=== PATIENT | male | born 1960 | race Two or more races ===

== ENCOUNTER 2020-02-23 13:32 | Outpatient (CLI) | payer MEDICAID ==
--- NOTE | 2020-02-23 18:15 | Consultation ---
DATE OF CONSULTATION: 02/23/2020 CONSULTING PHYSICIAN: Blaze Vyas MD CHIEF COMPLAINT: Chronic GERD. PAST MEDICAL HISTORY: 1. Colitis. 2. GERD. 3. Hypertension. 4. Hypercholesterolemia. PAST SURGICAL HISTORY: None. MEDICATIONS: Omeprazole. FAMILY HISTORY: Diabetes. SOCIAL HISTORY: Patient denies any tobacco, alcohol, or drug abuse. ALLERGIES: To Flagyl. REVIEW OF SYSTEMS: Positive for chronic GERD and bloating. PHYSICAL EXAMINATION: VITAL SIGNS: Temperature 97.6. Vital signs stable. HEENT: Normocephalic, atraumatic. Sclerae anicteric. NECK: Supple. No evidence of obvious lymphadenopathy. CARDIOVASCULAR: Regular rate and rhythm. Plus S1 and S2. LUNGS: Clear to auscultation bilaterally. ABDOMEN: Positive bowel sounds. Soft and nontender. No rebound. No guarding. No peritoneal sign. EXTREMITIES: No cyanosis, no clubbing, no edema. ASSESSMENT AND PLAN: This is a 59-year-old male with chronic GERD, needs endoscopy, currently on PPI without any response. Patient had a colonoscopy 2 years ago, so just needs endoscopy. Risks and benefits of procedure were explained to the patient. Patient agreed. We will schedule him when the authorization is obtained. Blaze Vyas M.D. DR: JAIR JOB#: [id number] CC:
[2020-02-24] MEDS ORDERED: OMEPRAZOLE20 M2 ORAL (10:15)
== END 2020-02-23 15:18 | disposition home or self-care (01) ==
LOC: PAN 13:32
DX: K21.9 Gastro-esophageal reflux disease without esophagitis (principal); I10 Essential (primary) hypertension; E78.00 Pure hypercholesterolemia, unspecified; Z79.899 Other long term (current) drug therapy; Z88.8 Allergy status to other drugs, medicaments and biological substances; R14.0 Abdominal distension (gaseous)
CPT/HCPCS: G0463